=== PATIENT | female | born 1955 | race Caucasian/White ===

== ENCOUNTER 2020-12-01 11:50 | Emergency (ER) | payer MEDICARE ==
[~2020-12-01] VITALS: Ht 165.1 cm; Wt 135.0 kg
--- NOTE | 2020-12-01 12:39 | PHYS DOC ---
Past History Additional Past Medical Histor: PE's, Pre diabetic (NILSA SANDRA APRN) Past Surgical History: Other Additional Past Surgical Histo: bilat carpal tunnel, thyroid biopsy (NILSA SANDRA APRN) Alcohol Use: Rarely (NILSA SANDRA APRN) General Adult EDM: Chief Complaint: EYE PROBLEMS HPI: HPI: Patient is a 64-year-old female who presents to the emergency department for left eye blurred vision that started this morning at 730. Patient reports that she usually does have left eye blurred vision but it is worse today and has not gone away. She reports a "sinus headache". She has a history of hypertension, diabetes and PEs. She is on Eliquis. She denies any eye injury, pain, floaters, nausea, vomiting, unilateral weakness, balance issues or speech problems. Patient reports that she has been evaluated by an scraper burrer for her blurred vision and was told that there was no abnormalities found. (NILSA SANDRA APRN) Review of Systems: Review of Systems: 14 body systems of the review of systems have been reviewed. See HPI for pertinent positive and negative responses, otherwise all other systems are negative, nonpertinent or noncontributory (NILSA SANDRA APRN) Allergies: Allergies: Allergies Coded Allergies Type Severity Reaction Last Updated Verified Penicillins Allergy Intermediate hives 12/01/20 Yes Sulfa (Sulfonamide Antibiotics) Allergy Intermediate hives 12/01/20 Yes doxycycline Allergy Intermediate vomiting 12/01/20 Yes enoxaparin Allergy Intermediate hives 12/01/20 Yes sulfamethoxazole Allergy Intermediate 12/01/20 Yes trimethoprim Allergy Intermediate 12/01/20 Yes loratadine Adverse Reaction Intermediate palpitations 12/01/20 Yes (NILSA SANDRA APRN) Physical Exam: PE: Constitutional: Well developed, well nourished, no acute distress, non-toxic appearance. [] HENT: Normocephalic, atraumatic, bilateral external ears normal, oropharynx moist, no oral exudates, nose normal. [] Eyes: PERRLA, Pupils 4mm bilaterally, EOMI, conjunctiva normal, no discharge. [] Neck: Normal range of motion, no stridor Cardiovascular:Heart rate regular rhythm, no murmur [] Lungs & Thorax: Bilateral breath sounds clear to auscultation [] Abdomen: Soft Skin: Warm, dry, no erythema, no rash. [] Back: Normal range of motion Extremities: No tenderness, no cyanosis, no clubbing, ROM intact, no edema. [] Neurologic: Alert and oriented X 3, normal motor function, normal sensory fun ction, no focal deficits noted, equal electrical troubleshooter strength, no pronator drift, no limb ataxia, normal speech. [] Psychologic: Affect normal, judgement normal, mood normal. [] (NILSA SANDRA APRN) Current Patient Data: Labs: Laboratory Tests Test 12/01/20 12:24 White Blood Count 5.0 x10^3/uL Red Blood Count 4.86 x10^6/uL Hemoglobin 14.0 g/dL Hematocrit 42.1 % Mean Corpuscular Volume 87 fL Mean Corpuscular Hemoglobin 29 pg Mean Corpuscular Hemoglobin Concent 33 g/dL Red Cell Distribution Width 14.9 % Platelet Count 195 x10^3/uL Neutrophils (%) (Auto) 56 % Lymphocytes (%) (Auto) 30 % Monocytes (%) (Auto) 10 % Eosinophils (%) (Auto) 3 % Basophils (%) (Auto) 1 % Neutrophils # (Auto) 2.8 x10^3uL Lymphocytes # (Auto) 1.5 x10^3/uL Monocytes # (Auto) 0.5 x10^3/uL Eosinophils # (Auto) 0.1 x10^3/uL Basophils # (Auto) 0.1 x10^3/uL Prothrombin Time 10.4 SEC Prothromb Time International Ratio 1.0 Activated Partial Thromboplast Time 25 SEC Sodium Level 140 mmol/L Potassium Level 3.7 mmol/L Chloride Level 106 mmol/L Carbon Dioxide Level 24 mmol/L Anion Gap 10 Blood Urea Nitrogen 13 mg/dL Creatinine 0.9 mg/dL Estimated GFR (Cockcroft-Gault) 62.6 BUN/Creatinine Ratio 14 Glucose Level 123 mg/dL Calcium Level 9.1 mg/dL Total Bilirubin 0.4 mg/dL Aspartate Amino Transf (AST/SGOT) 11 U/L Alanine Aminotransferase (ALT/SGPT) 21 U/L Alkaline Phosphatase 120 U/L Troponin I Quantitative < 0.017 ng/mL Total Protein 7.0 g/dL Albumin 3.3 g/dL Albumin/Globulin Ratio 0.9 Vital Signs: Vital Signs Date Time Temp Pulse Resp B/P (MAP) Pulse Ox O2 Delivery O2 Flow Rate FiO2 12/01/20 12:05 98.3 73 18 173/80 (111) 98 Room Air (NILSA SANDRA APRN) EKG: EKG: EKG performed by ER staff at 1250 shows sinus rhythm with a rate of 62, QTc 416, no STEMI read by Dr. John at 1257 [] (NILSA SANDRA APRN) Radiology/Procedures: Radiology/Procedures: []PROCEDURE: CT HEAD WO CONTRAST EXAM: CT Head without IV contrast CLINICAL HISTORY: Reason: blurred vision, headache / Spl. Instructions: / History: COMPARISON: None. TECHNIQUE: Routine CT of the head without contrast. PQRS compliance statement - One or more of the following individualized dose reduction techniques were utilized for this study: 1. Automated exposure control 2. Adjustment of the mA and/or kV according to patient size 3. Use of iterative reconstruction technique FINDINGS: There is no evidence of hemorrhage, mass or extra-axial fluid collection. Crum-white differentiation is maintained with no evidence of edema. There is no mass effect or shift of the intracranial structures. The ventricles, basilar cisterns and cortical sulci are normal in size and configuration for the patients stated age. The cerebellum and brainstem are unremarkable. The calvarium demonstrates no evidence of fracture or focal lesion. There is normal aeration of the visualized paranasal sinuses and mastoid air cells. The visualized portions of the orbits are normal. Atherosclerotic calcifications of the intracranial internal carotid and vertebral arteries is seen. IMPRESSION: No evidence for acute intracranial process. Electronically signed by: Ernesto Donahue MD (12/01/2020 12:45 PM) [facility] DICTATED AND SIGNED BY: ERNESTO DONAHUE MD DATE: 12/01/20 1242 CC: EMERGENCY,DEPARTMENT; NILSA SANDRA APRN; MARGARITA HERNANDEZ ~MTH0 0 (NILSA SANDRA APRN) Heart Score: C/O Chest Pain: N/A Risk Factors: Risk Factors: DM, Current or recent (<one month) smoker, HTN, HLP, family history of CAD, obesity. Risk Scores: Score 0 - 3: 2.5% MACE over next 6 weeks - Discharge Home Score 4 - 6: 20.3% MACE over next 6 weeks - Admit for Clinical Observation Score 7 - 10: 72.7% MACE over next 6 weeks - Early Invasive Strategies (NILSA SANDRA APRN) Course & Med Decision Making: Course & Med Decision Making Pertinent Labs and Imaging studies reviewed. (See chart for details) Patient is a 64-year-old female being seen in the ER for increased left eye blurry vision. Visual acuities performed in the ER her right eye was 20/30, left eye was 20/70, bilateral eyes was 20/40. Patient had a negative neuro exam. Work up in the ER consisted of blood work and CT of head. Workup in the ER was unremarkable. As patient stated that this is a chronic issue for her, I believe that she can be discharged home to follow-up with an scraper burrer. I discussed with patient all findings and diagnostic testing as well as the need to follow-up with PCP for further evaluation and treatment or return to the ER if any new or worsening symptoms. Strict return precautions were also discussed at length. Patient voiced understanding and agreement with the plan. Patient is hemodynamically stable at the time of disposition. (NILSA SANDRA APRN) Course & Med Decision Making I was the Attending physician on the above date of service of this patient. This patient was evaluated, examined, treated, and dispositioned from the emergency department by the mid-level practitioner. Although I was working at the time , no assistance was requested. Electronically signed, Isaias John DO (ISAIAS JOHN DO) Jolynn Disclaimer: Jolynn Disclaimer: This electronic medical record was generated, in whole or in part, using a voice recognition dictation system. (NILSA SANDRA APRN) NIH Stroke Scale: NIH Stroke Scale Response (Comments) Value Level of Consciousness: 0 Alert/Responsive 0 LOC Questions: 0 Answers both correctly 0 LOC Commands: 0 Performs both tasks 0 Best Gaze: 0 Normal 0 Visual: 0 No visual loss 0 Facial Palsy: 0 Normal, symmetrical 0 Motor - Left Arm 0 No drift 0 Motor - Right Arm 0 No drift 0 Motor - Left Leg 0 No drift 0 Motor: Right Leg 0 No drift 0 Limb Ataxia: 0 Absent 0 Sensory: 0 No loss 0 Best Language: 0 Normal 0 Dysathria: 0 Normal 0 Extinction and Inattention: 0 Normal 0 Total 0 Departure Departure: Impression: Primary Impression: Blurred vision, left eye Disposition: 01 HOME / SELF CARE / HOMELESS Condition: GOOD Referrals: MARGARITA HERNANDEZ (PCP) Patient Instructions: Eye - Blurred Vision Additional Instructions: You were seen in the emergency department today for blurred vision. Work-up in the ER was unremarkable. I would follow-up with an scraper burrer on Thursday. Please return to the emergency department if you develop unilateral weakness, balance issues, speech issues, worsening of your headache, worsening of your vision, intractable nausea or vomiting or any new or worsening concerns. EMERGENCY DEPARTMENT GENERAL DISCHARGE INSTRUCTIONS Thank you for coming to [facility] (ED) today and trusting us with you care. We trust that you had a positivie experience in our Emergency Department. If you wish to speak to the department management, you may call the director at [phone]. YOUR FOLLOW UP INSTRUCTIONS ARE FOLLOWS: 1. Do you have a private Doctor? If you do not have a private doctor, please ask for a resource list of physicians or clinics that may be able to assist you with follow up care. 2. The Emergency Physician has interpreted your x-rays. The X-Ray specialist will also review them. If there is a change in the findings, you will be notified in 48 hours when at all possible. 3. A lab test or culture has been done, your results will be reviewed and you will be notified if you need a change in treatment. ADDITIONAL INSTRUCTIONS AND INFORMATION: 1. Your care today has been supervised by a physician who is specially trained in emergency care. Many problems require more than one evaluation for a complete diagnosis and treatment. We recommend that you schedule your follow up appointment as recommended to ensure complete treatment of you illness or injury. If you are unable to obtain follow up care and continue to have a problem, or if your condition worsens, we recommend that you return to the ED. 2. We are not able to safely determine your condition over the phone nor are we able to give sound medical advice over the phone. For these safety reasons, if you call for medical advice we will ask you to come to the ED for further evaluation. 3. If you have any questions regarding these discharge instructions please call the ED at [phone]. SAFETY INFORMATION: In the interest of safety, wellness, and injury prevention; we encourage you to wear your sealbelt, if you smoke; quite smoking, and we encourage family to use a protective helmet for bicycling and other sporting events that present an increased risk for head injury. IF YOUR SYMPTOMS WORSEN OR NEW SYMPTOMS DEVELOP, OR YOU HAVE CONCERNS ABOUT YOUR CONDITION; OR IF YOUR CONDITION WORSENS WHILE YOU ARE WAITING FOR YOUR FOLLOW UP APPOINTMENT; EITHER CONTACT YOUR PRIMARY CARE DOCTOR, THE PHYSICIAN WHOSE NAME AND NUMBER YOU WERE GIVEN, OR RETURN TO THE ED IMMEDIATELY. NILSA SANDRA APRN Dec 01, 2020 12:39 ISAIAS JOHN DO Dec 02, 2020 13:13
[2020-12-01 12:45] LABS: BASO # 0.1 x10^3/uL (0.0-0.2); BASO % 1 % (0-3); CALCIUM 9.1 mg/dL (8.5-10.1); CREATININE 0.9 mg/dL (0.6-1.0); EOS # 0.1 x10^3/uL (0.0-0.7); EOS % 3 % (0-3); GFR 62.6; HEMATOCRIT 42.1 % (36.0-47.0); LYMPH # 1.5 x10^3/uL (1.0-4.8); LYMPH % 30 % (24-48); MEAN CORPUSCULAR HEMOGLOBIN 29 pg (25-35); MEAN CORPUSCULAR HGB CONC 33 g/dL (31-37); MEAN CORPUSCULAR VOLUME 87 fL (79-100); MONO # 0.5 x10^3/uL (0.0-1.1); MONO % 10 % (0-9); NEUT # 2.8 x10^3uL (1.8-7.7); NEUT % 56 % (31-73); PLATELET COUNT 195 x10^3/uL (140-400); POTASSIUM 3.7 mmol/L (3.5-5.1); RED BLOOD COUNT 4.86 x10^6/uL (3.50-5.40); RED CELL DISTRIBUTION WIDTH 14.9 % (11.5-14.5)
--- NOTE | 2020-12-01 12:48 | RAD ---
EXAM: CT Head without IV contrast CLINICAL HISTORY: Reason: blurred vision, headache / Spl. Instructions: / History: COMPARISON: None. TECHNIQUE: Routine CT of the head without contrast. PQRS compliance statement - One or more of the following individualized dose reduction techniques wer e utilized for this study: 1. Automated exposure control 2. Adjustment of the mA and/or kV according to patient size 3. Use of iterative reconstruction technique FINDINGS: There is no evidence of hemorrhage, mass or extra-axial fluid collection. Crum-white differentiation is maintained with no evidence of edema. There is no mass effect or shift of the intracranial structures. The ventricles, basilar cisterns and cortical sulci are normal in size and configuration for the mayco ents stated age. The cerebellum and brainstem are unremarkable. The calvarium demonstrates no evidence of fracture or focal lesion. There is normal aeration of the visualized paranasal sinuses and mastoid air cells. The visualized portions of the orbits are normal. Atherosclerotic calcifications of the intracranial internal carotid and vertebral arteries is seen. IMPRESSION: No evidence for acute intracranial process. Electronically signed by: Ernesto Lopez MD (12/01/2020 12:45 PM) [facility]
[2020-12-01 13:01] LABS: ALBUMIN 3.3 g/dL (3.4-5.0); ALBUMIN/GLOBULIN RATIO 0.9 (1.0-1.7); TOTAL BILIRUBIN 0.4 mg/dL (0.2-1.0)
--- NOTE | 2020-12-01 13:01 | EKG ---
[address] [address] Test Date: 2020-12-01 Test Time: 12:50:54 Pat Name: ADALGISA TOVAR Department: Room: Gender: F Customer Experience Analyst: HOME : 1955 Requested By: NILSA SANDRA Order Number: [id number] Reading MD: Ravi Adhikari MD Measurements Intervals [place] Rate: 62 P: [place]: QRS: 0 QRSD: 86 T: 4 QT: 408 QTc: 416 Interpretive Statements SINUS RHYTHM NON-SPECIFIC ST/T CHANGES Electronically Signed On 12-03-2020 10:34:51 CDT by Ravi Adhikari MD
[2020-12-01 13:45] VITALS: BP 153/65
== END 2020-12-01 14:13 | disposition home or self-care (01) ==
LOC: ER 11:50
DX: H53.8 Other visual disturbances (principal); Z88.0 Allergy status to penicillin; Z88.2 Allergy status to sulfonamides; Z88.1 Allergy status to other antibiotic agents
CPT/HCPCS: 36415; 70450; 80053; 84484; 85025; 85610; 85730; 93005; 99285-25